=== PATIENT | male | born 1940 | race Caucasian/White ===

== ENCOUNTER 2018-01-23 22:07 | Emergency (ER) | payer OTHER, MEDICARE ==
[~2018-01-23] VITALS: Ht 170.2 cm; Wt 100.2 kg
[~2018-01-23 22:07] MED LIST: ACTOS15 MG PO; ACTOS30 MG PO; ADULT LOW DOSE81 M1 PO; ALLOPURINOL300 MG PO; ANALGESIC325 M1 G-TUBE; APRESOLINE100 MG PO; ASCORBIC ACID500 M3 PO; ASPIR 8181 M1 PO; ASPIR-LOW81 MG PO; B COMPLEX1 EACH PO; B12 PO; CO Q-10100 MG PO; COQ-10100 MG PO; CRESTOR40 MG PO; CYANOCOBALAM1000 MCG PO; DAILY VITAMIN1 EAC8 PO; ECOTRIN325 MG PO; FENOFIBRATE160 M1 PO; FISH OIL CONC1 EACH PO; FISH OIL500 MG PO; FLOMAX0.4 MG PO; FUROSEMIDE40 MG PO; GLIPIZIDE ER2.5 M1 PO; GLIPIZIDE XL10 MG PO; GLIPIZIDE10 M1 G-TUBE; GLUCOTROL XL10 MG PO; HUMALOG100 UNIT/2 SC; HYDRALAZINE HC100 MG PO; HYDRALAZINE HCL50 MG PO; IMDUR; IMDUR120 MG PO; IMDUR30 MG PO; IMDUR60 MG PO; ISOSORBIDE MONO30 MG PO; ISOSORBIDE MONO60 MG PO; K-DUR20 MEQ PO; KLOR-CON M2020 MEQ PO; KLOR-CON20 MEQ PO; LANTUS 10100 UNITS/ SC; LANTUS 3 M100 UNITS1 SC; LASIX40 MG PO; LEVEMIR FL100 UNIT/1 SC; LEVEMIR100 UNIT/2 SC; LISINOPRIL20 MG PO; LO-DOSE ASPIRIN81 M1 PO; MEGA-RED PO; METOPROLOL SUC100 MG PO; METOPROLOL TART50 MG PO; MULTIVITAMIN1 EAC2 PO; NASAL SPRAY30 M2 BOTH NARES; NIFEDICAL XL30 MG PO; NIFEDIPINE ER30 MG PO; NITROSTAT0.4 MG SL; NORVASC10 MG PO; NOVOLOG MI100 UNIT/M SC; OXYCODONE-APAP1 EAC6 PO; PANTOPRAZOLE SO40 MG PO; PERCOCET 7.51 TABLET PO; PLAVIX75 MG PO; POTASSIUM CHLO20 ME2 PO; PRINIVIL20 MG PO; PRINIVIL40 MG PO; PROTONIX40 MG PO; Q-SORB CO Q-10100 MG PO; RANEXA500 MG PO; SPIRONOLACTONE25 MG PO; SUPER B-50 COM1 EAC1 PO; TAMSULOSIN HCL0.4 MG PO; TOPROL XL100 MG PO; VENTOLIN HFA18 GM IH; VITAMIN B-6100 MG PO; VITAMIN C1000 MG PO; VITAMIN D1000 UNIT PO; VITAMIN E1000 UNI1 PO; VITAMIN E400 UNIT PO; ZANTAC150 MG PO; ZESTRIL,PRINIVI40 MG PO; ZESTRIL40 MG PO; ZYLOPRIM300 MG PO; [UNRECOGNIZED DRUG - OTHER] PO
[2018-01-23 23:20] LABS: BASOPHIL (%) 0.6 % (0-1); BASOPHIL COUNT 0.1 K/uL (0-0.1); EOSINOPHIL COUNT 0.2 K/uL (0-0.3); HEMATOCRIT 38.5 % (38.0-50.0); HEMOGLOBIN 13.6 G/DL (12.5-16.6); IMMATURE GRANULOCYTE (%) 0.4 % (0.0-0.7); LYMPHOCYTE (%) 21.9 % (15-42); LYMPHOCYTE COUNT 2.1 K/uL (1.0-2.8); MCH 31.6 PG (29.0-34.0); MCHC 35.3 G/DL (30.0-36.0); MCV 89.5 FL (86-99); MONOCYTE (%) 7.2 % (3-12); MONOCYTE COUNT 0.7 K/uL (0-0.8); NEUTROPHIL (%) 67.9 % (45-76); NEUTROPHIL COUNT 6.5 K/uL (1.8-6.4); PLATELET COUNT 166 K/uL (156-360); RBC DIS.WIDTH-CV 13.7 % (11.8-14.6); RBC DIS.WIDTH-SD 44.5 % (39-53); WHITE BLOOD COUNT 9.6 K/uL (4.1-10.2)
[2018-01-23 23:31] LABS: INTER. NORMALIZED RATIO 1.1
[2018-01-23 23:34] LABS: PTT 33.4 SEC (25-37)
[2018-01-23 23:36] LABS: ALBUMIN 3.8 g/dL (3.2-4.8); CHLORIDE 104 mEq/L (99-109); POTASSIUM 3.8 mEq/L (3.7-5.4); SODIUM 138 mEq/L (136-147)
[2018-01-23 23:39] LABS: GLUCOSE 313 mg/dL (70-99); TOTAL PROTEIN 7.5 g/dL (6.4-8.3)
[2018-01-23 23:41] LABS: TOTAL BILIRUBIN 0.8 mg/dL (0.0-1.0)
[2018-01-23 23:42] LABS: ALKALINE PHOSPHATASE 67 IU/L (3-129)
[2018-01-23 23:43] LABS: CREATININE 1.3 mg/dL (0.6-1.3); GFR ESTIMATE (CALCULATED) 57 mL/min/ (58.99-99999)
[2018-01-23 23:44] LABS: AST (GOT) 14 IU/L (2-34); DIRECT BILIRUBIN 0.2 mg/dL (0.0-0.3); UREA NITROGEN (BUN) 21 mg/dL (9-23)
[2018-01-23 23:45] LABS: ALT (GPT) 10 IU/L (3-49)
[2018-01-23 23:46] LABS: LIPASE 48 U/L (1.0-51.0)
[2018-01-23 23:48] LABS: TROP-I INTERPRETATION NEGATIVE; TROPONIN-I < 0.01 ng/mL (0.0-0.30)
[2018-01-24] MEDS ORDERED: AUGMENTIN875 MG PO (02:01)
[2018-01-24 02:27] VITALS: BP 150/83
== END 2018-01-24 02:28 | disposition home or self-care (01) ==
LOC: EME 22:07
PROVIDERS: Emergency Medicine
DX: K57.33 Diverticulitis of large intestine without perforation or abscess with bleeding (principal); I10 Essential (primary) hypertension; E11.9 Type 2 diabetes mellitus without complications; Z79.84 Long term (current) use of oral hypoglycemic drugs; I25.10 Atherosclerotic heart disease of native coronary artery without angina pectoris; I50.9 Heart failure, unspecified; K21.9 Gastro-esophageal reflux disease without esophagitis; G89.29 Other chronic pain; M54.9 Dorsalgia, unspecified; I25.2 Old myocardial infarction; F41.9 Anxiety disorder, unspecified; F32.9 Major depressive disorder, single episode, unspecified; Z87.891 Personal history of nicotine dependence; Z85.51 Personal history of malignant neoplasm of bladder; Z95.5 Presence of coronary angioplasty implant and graft; Z86.73 Personal history of transient ischemic attack (TIA), and cerebral infarction without residual deficits; Z95.1 Presence of aortocoronary bypass graft; Z90.49 Acquired absence of other specified parts of digestive tract; Z88.6 Allergy status to analgesic agent
CPT/HCPCS: 74176; 74177; 80048; 80076; 81003; 83605; 83690; 83880; 84484; 85025; 85610; 85730; 86850; 86900; 86901; 99281; 99285